=== PATIENT | female | born 1960 | race Caucasian/White ===

== ENCOUNTER → 2018-01-26 06:34 | Outpatient (CLI) | payer OTHER, SELFPAY ==
--- NOTE | 2018-01-26 09:47 | STRESSREP ---
Stress Test Report Date: 01/26/2018 Procedure: Exercise tolerance test/imaging study Indications: Chest pain Consent: Per the patient Procedure: The patient exercised on a Alfred protocol for 5 minutes completing stage I and 2 minutes of stage II achieving a peak heart rate of 169 bpm (103 % predicted maximal heart rate) with a peak blood pressure 164/84 mmHg and a peak MET capacity of 7 METs. The baseline ECG demonstrated sinus rhythm. The peak exercise ECG demonstrated no obvious ECG changes. There was a rare PVC during exercise and recovery and an isolated ventricular couplet during recovery and transient ventricular trigeminy during recovery. The functional capacity was considered average. There was no complaint of chest discomfort during exercise or recovery. The examination was discontinued secondary to leg fatigue. Impression: 1. Technically adequate (percent predicted maximal heart rate greater than 85%) exercise tolerance test 2. Peak exercise ECG demonstrated no obvious ECG changes 3. There was a rare PVC during exercise and recovery and an isolated ventricular couplet during recovery and transient ventricular trigeminy during recovery. 4. Nuclear images pending Myocardial perfusion imaging study: Technique: The patient was injected with 14.1 mCi of technetium 99m Cardiolite and subsequently rest SPECT Cardiolite nuclear imaging was obtained in the horizontal long, vertical long, and short axis views. The patient exercised on a Alfred protocol for 5 minutes completing stage I and 2 minutes of stage II achieving a peak heart rate of 169 bpm (103 % predicted maximal heart rate) with a peak blood pressure 164/84 mmHg and a peak MET capacity of 7 METs. The patient was injected with 45 mCi of technetium 99m Cardiolite and subsequently stress SPECT Cardiolite nuclear imaging was obtained in the horizontal long, vertical long, and short axis views. A gated Cardiolite study at peak stress was obtained. Interpretation: Rest and stress SPECT Cardiolite nuclear imaging status post realignment, normalization, and attenuation correction, demonstrates relative uniform tracer uptake at rest and status post stress and area of subtle diminished tracer uptake in the mid anterolateral segments. There is end systolic thickening and brightening. The gated Cardiolite study demonstrates myocardial thickening and inward wall motion. The reported LVEF is 90 %. Impression: 1. Rest and stress SPECT Cardiolite nuclear imaging demonstrate a lot of uniform tracer uptake at rest and status post stress an area of subtle diminished tracer uptake in the mid anterolateral segments potentially compatible with shifting soft tissue attenuation/artifact however an area of stress-induced myocardial ischemia cannot be excluded. 2. The gated Cardiolite study reports an LVEF of 90 %. This note was generated with StratusLIVEation software. It may contain incorrect words, spelling, and punctuation that were not noted in checking the note before signing.
--- NOTE | 2018-01-26 09:55 | STRESSREP_ITS ---
Stress Test Report Date: 01/26/2018 Procedure: Exercise tolerance test/imaging study Indications: Chest pain Consent: Per the patient Procedure: The patient exercised on a Alfred protocol for 5 minutes completing stage I and 2 minutes of stage II achieving a peak heart rate of 169 bpm (103 % predicted maximal heart rate) with a peak blood pressure 164/84 mmHg and a peak MET capacity of 7 METs. The baseline ECG demonstrated sinus rhythm. The peak exercise ECG demonstrated no obvious ECG changes. There was a rare PVC during exercise and recovery and an isolated ventricular couplet during recovery and transient ventricular trigeminy during recovery. The functional capacity was considered average. There was no complaint of chest discomfort during exercise or recovery. The examination was discontinued secondary to leg fatigue. Impression: 1. Technically adequate (percent predicted maximal heart rate greater than 85% ) exercise tolerance test 2. Peak exercise ECG demonstrated no obvious ECG changes 3. There was a rare PVC during exercise and recovery and an isolated ventricular couplet during recovery and transient ventricular trigeminy during recovery. 4. Nuclear images pending Myocardial perfusion imaging study: Technique: The patient was injected with 14.1 mCi of technetium 99m Cardiolite and subsequently rest SPECT Cardiolite nuclear imaging was obtained in the horizontal long, vertical long, and short axis views. The patient exercised on a Alfred protocol for 5 minutes completing stage I and 2 minutes of stage II achieving a peak heart rate of 169 bpm (103 % predicted maximal heart rate) with a peak blood pressure 164/84 mmHg and a peak MET capacity of 7 METs. The patient was injected with 45 mCi of technetium 99m Cardiolite and subsequently stress SPECT Cardiolite nuclear imaging was obtained in the horizontal long, vertical long, and short axis views. A gated Cardiolite study at peak stress was obtained. Interpretation: Rest and stress SPECT Cardiolite nuclear imaging status post realignment, normalization, and attenuation correction, demonstrates relative uniform tracer uptake at rest and status post stress and area of subtle diminished tracer uptake in the mid anterolateral segments. There is end systolic thickening and brightening. The gated Cardiolite study demonstrates myocardial thickening and inward wall motion. The reported LVEF is 90 %. Impression: 1. Rest and stress SPECT Cardiolite nuclear imaging demonstrate a lot of uniform tracer uptake at rest and status post stress an area of subtle diminished tracer uptake in the mid anterolateral segments potentially compatible with shifting soft tissue attenuation/artifact however an area of stress-induced myocardial ischemia cannot be excluded. 2. The gated Cardiolite study reports an LVEF of 90 %. This note was generated with Mozesation software. It may contain incorrect words, spelling, and punctuation that were not noted in checking the note before signing.
== END ==
PROVIDERS: Family Provider Internal Medicine; PCP Internal Medicine; Visit Provider Internal Medicine
DX: R07.89 Other chest pain (principal)
CPT/HCPCS: 78452; 93017; A9500; A4216

== ENCOUNTER → 2020-04-25 17:59 | Outpatient (CLI) | payer OTHER, SELFPAY | PROVIDERS: PCP Internal Medicine | DX: Z20.828 Contact with and (suspected) exposure to other viral communicable diseases (principal); J02.9 Acute pharyngitis, unspecified; R09.81 Nasal congestion | CPT/HCPCS: 87635; G2023; U0003 ==

== ENCOUNTER 2022-09-17 15:18 | Emergency (ER) | payer OTHER, SELFPAY ==
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
[2022-09-17 15:20] VITALS: BP 148/87; PULSE 117; RESP 11; TEMP 36.6; O2SAT 100; BMI 35.9
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
[2022-09-17] MEDS: Ondansetron 4 MG/2 ML Vial IV (15:46)
[2022-09-17] MEDS: Morphine 4 MG/ML Syringe IV (15:49)
[2022-09-17 16:09] LABS: Absolute Lymphocyte Count 2.92 X10^3/uL (0.83-4.51); Absolute Neutrophil Count 7.8 X10^3/uL (2.0-7.7); Basophil# 0.07 X10^3/uL; Basophil% 0.6 % (0-1); Eosinophil# 0.13 X10^3/uL; Eosinophils% 1.1 % (0-5); Hemoglobin 15.2 g/dL (12.0-15.0); Lymphocyte # 2.92 X10^3/ul (0.83-4.51); Lymphocyte % 24.7 % (19-41); Mean Corp Hgb Conc 34.5 g/dL (32-36); Mean Corpuscular Hgb 30.6 pg (27.0-32.0); Mean Corpuscular Volume 88.5 fL (81-99); Mean Platelet Vol. 10.6 fl (6.2-12.0); Monocyte# 0.88 X10^3/uL; Monocyte% 7.4 % (0-10); NRBC Flagged by Analyzer 0 % (0-5); Neutrophil # 7.78 X10^3/uL (2.7-7.7); Neutrophil % 65.8 % (47-70); Platelet Count 277 K/mm3 (150-450); RBC Distribution Width CV 12.5 % (11.6-14.6); RBC Distribution Width SD 40.3 fl (35.1-43.9); Red Blood Count 4.97 M/mm3 (4.2-5.4); White Blood Count 11.8 K/mm3 (4.4-11.0)
[2022-09-17 16:30] VITALS: BP 138/77; PULSE 97; RESP 18; O2SAT 100
[2022-09-17 16:48] LABS: Anion Gap 9 (5-15); BUN 15 mg/dL (7-18); BUN/Creat Ratio 13.9 RATIO (10-20); Calcium,Total 9.7 mg/dL (8.5-10.1); Chloride 107 mmol/L (98-107); Creatinine, Serum 1.08 mg/dL (0.55-1.02); EST Glomerular Filtration Rate 55 mL/min (>60); Est Glom Filt Rate - Afr Amer 66 mL/min (>60); Estimated Creatinine Clearance 52.52 ml/min; Glucose 149 mg/dL (74-106); Potassium 3.4 mmol/L (3.5-5.1); Sodium Level 140 mmol/L (136-145)
[2022-09-17] MEDS: 0.9% Normal Saline 1,000 ML 999 ML IV (17:14)
[2022-09-17] MEDS: Ketorolac 15 MG/ML Vial IV (17:14)
[2022-09-17 17:30] VITALS: BP 127/89; PULSE 93; RESP 18; O2SAT 100
[2022-09-17 18:20] VITALS: BP 152/75; PULSE 89; RESP 19; O2SAT 100
--- NOTE | 2022-09-17 18:33 | ED.RN ---
attempted to sit pt on side of the bed, pt states oh, im really dizzy.
[2022-09-17 20:16] VITALS: BP 122/75; PULSE 102; RESP 15; O2SAT 98
--- NOTE | 2022-09-17 20:16 | ED.RN ---
SAT PATIENT AT SIDE OF BED, DENIES DIZZINESS.
== END 2022-09-17 21:26 | disposition home or self-care (01) ==
PROVIDERS: Emergency Provider Emergency Medicine; PCP Internal Medicine; Visit Provider Emergency Medicine
DX: S09.90XA Unspecified injury of head, initial encounter (principal); E11.9 Type 2 diabetes mellitus without complications; S19.9XXA Unspecified injury of neck, initial encounter; V89.2XXA Person injured in unspecified motor-vehicle accident, traffic, initial encounter; S20.20XA Contusion of thorax, unspecified, initial encounter; I10 Essential (primary) hypertension
CPT/HCPCS: 70450; 71260; 72125; 74177; 80048; 85025; 93005; 96374; 96375; 99285; J7030; Q9967; A4216; J2405